=== PATIENT | male | born 1980 | race Caucasian/White ===

== ENCOUNTER 2018-10-05 08:14 | Observation (INO) | payer BC ==
[~2018-10-05] VITALS: Ht 175.3 cm; Wt 90.7 kg
[~2018-10-05 08:14] MED LIST: CIPR500 PO; CYCL10 PO; DOXY100 PO; HYDACE10B PO; HYDACE5 PO; HYDACE5325 PO; IBUP600 PO; IBUP800 PO; OXYACE7.5T PO; PARO20; PENVK500 PO; RXOXYACE PO; TRAM50 PO
[2018-10-05 08:51] LABS: BASOPHILS ABSOLUTE AUTO 0.04 K/mm3 (0.00-0.23); BASOPHILS PERCENT AUTO 0 % (0-2); EOSINOPHILS ABSOLUTE AUTO 0.06 K/mm3 (0.00-0.68); EOSINOPHILS PERCENT AUTO 1 % (0-6); Hematocrit 44.1 % (37.0-53.0); Hemoglobin 14.6 g/dL (13.5-17.5); IMMATURE GRAN ABSOLUTE AUTO 0.02 K/mm3 (0.00-0.10); IMMATURE GRAN PERCENT AUTO 0 % (0-1); LYMPHOCYTES ABSOLUTE AUTO 1.69 K/mm3 (0.84-5.20); LYMPHOCYTES PERCENT AUTO 18 % (21-46); MONOCYTES ABSOLUTE AUTO 0.63 K/mm3 (0.16-1.47); MONOCYTES PERCENT AUTO 7 % (4-13); Mean Corpuscular HGB 29.6 pg (26.0-34.0); Mean Corpuscular HGB Conc 33.1 g/dL (31.5-36.5); Mean Corpuscular Volume 90 fL (80-100); Mean Platelet Volume 10.9 fL (9.1-12.4); NEUTROPHILS ABSOLUTE AUTO 7.12 K/mm3 (1.96-9.15); NEUTROPHILS PERCENT AUTO 75 % (41-73); Platelet Count 231 K/mm3 (150-400); Red Blood Cell Count 4.93 M/mm3 (4.30-5.90); White Blood Cell Count 9.56 K/mm3 (4.00-11.30)
[2018-10-05 09:13] LABS: Alanine Aminotransfer (ALT/SGP 29 U/L (12-78); Albumin, Blood 3.7 g/dL (3.4-5.0); Albumin/Globulin Ratio 1.1 (0.8-1.8); Alk Phos 78 U/L (50-136); Anion Gap 7 mmol/L (6-16); Aspartate Aminotrans (AST/SGOT 21 U/L (12-37); Bilirubin, Total 0.2 mg/dL (0.1-1.0); Blood Urea Nitrogen 14 mg/dL (8-24); Bun/Creatinine Ratio 18.1 (12.0-20.0); CO2, Blood 24 mmol/L (21-32); Calcium, Blood 8.6 mg/dL (8.5-10.1); Chloride, Blood 112 mmol/L (98-108); Creatinine, Blood 0.77 mg/dL (0.60-1.20); Globulin, Blood 3.5 g/dL (2.2-4.0); Glomerular Filtration Rate >60 (60-); Glucose, Blood 120 mg/dL (70-99); Potassium, Blood 3.9 mmol/L (3.5-5.5); Sodium, Blood 143 mmol/L (136-145); Total Protein, Blood 7.2 g/dL (6.4-8.2)
[2018-10-05] MEDS ORDERED: Norco 5-325 Ta1 EACH PO (16:33)
--- NOTE | 2018-10-05 17:08 | NUR ---
DISCHARGE INSTRUCTIONS AND RX PROVIDED. PT STATES UNDERSTANDING. PT ENC TO F/U RANJIT FOR PROBLEMS OR CONCERNS. PT IS WAITING FOR A RIDE. VSS. STABLE PAIN IS TOLERABLE. MARTING C/D/I. CALL LIGHT IN REACH. PT TO CALL WHEN RIDE ARRIVES.
== END 2018-10-05 17:57 | disposition home or self-care (01) ==
LOC: ER 08:14 → SURS 08:15
PROVIDERS: Emergency Medicine; ADMIT Surgery
PROC: BF13YZZ Fluoroscopy of Gallbladder and Bile Ducts using Other Contrast (ICD-10-PCS; 2018-10-05)
PROC: 0FT44ZZ Resection of Gallbladder, Percutaneous Endoscopic Approach (ICD-10-PCS; principal; 2018-10-05 10:00)
DX: K80.12 Calculus of gallbladder with acute and chronic cholecystitis without obstruction (principal); F17.210 Nicotine dependence, cigarettes, uncomplicated
CPT/HCPCS: 36415; 74300; 76705; 80053; 83690; 85025; 88304; 96361; 96365; 96375; 99285-25; A9270-GY; C1729; J1100; J1170; J1885; J2250; J2405; J2543; J2704; J3010; J7030; J7120

== ENCOUNTER 2018-10-05 19:33 | Emergency (ER) | payer BC ==
[~2018-10-05] VITALS: Ht 162.6 cm; Wt 79.4 kg
[~2018-10-05 19:33] MED LIST changes: +Norco 5-325 Ta1 EACH PO
== END 2018-10-05 20:38 | disposition home or self-care (01) ==
LOC: ER 19:33
DX: G89.18 Other acute postprocedural pain (principal); F17.210 Nicotine dependence, cigarettes, uncomplicated; Z90.49 Acquired absence of other specified parts of digestive tract
CPT/HCPCS: 99281; A9270